=== PATIENT | male | born 1980 | race Caucasian/White ===

== ENCOUNTER 2018-10-27 19:57 | Emergency (ER) | payer SELFPAY ==
[~2018-10-27] VITALS: Ht 172.7 cm; Wt 79.5 kg
[2018-10-27 20:09] VITALS: BP 133/63; PULSE 100; RESP 17; Ht 172.7 cm; Wt 79.5 kg
== END 2018-10-27 22:57 | disposition left against medical advice (07) ==
LOC: FTE 19:57
DX: Z53.21 Procedure and treatment not carried out due to patient leaving prior to being seen by health care provider (principal)